=== PATIENT | female | born 1945 | race Caucasian/White ===

== ENCOUNTER 2019-11-21 12:13 | Inpatient (IN) ==
--- NOTE | 2019-11-08 15:13 | PAT Medication Instructions ---
Medication Instructions Date of Service November 08, 2019 Home Medications albuterol sulfate 1 inh INHALATION QID PRN albuterol sulfate 2.5 mg INHALATION TID PRN amlodipine [Norvasc] 10 mg PO QAM ascorbic acid (vitamin C) [Vitamin C] 500 mg PO QAM atorvastatin [Lipitor] 20 mg PO QAM benzonatate [Tessalon Perles] 100 mg PO BID PRN fluticasone furoate-vilanterol [Breo Ellipta] 1 inh INHALATION QPM furosemide [Lasix] 20 mg PO QAM losartan [Cozaar] 100 mg PO QAM metoprolol tartrate [Lopressor] 50 mg PO QAM montelukast [Singulair] 10 mg PO HS Centrum Silver Women] 1 tab PO QAM omega-3 fatty acids [[place] 3] 1,000 mg PO QAM omeprazole [Prilosec] 20 mg PO BID polyethylene glycol 3350 [Miralax] 17 g PO DAILY PRN umeclidinium [Incruse Ellipta] 1 inh INHALATION QPM valacyclovir [Valtrex] 1,000 mg PO 3XWK venlafaxine [Effexor] 75 mg PO QAM Continue as directed valacyclovir [Valtrex] 1,000 mg PO 3XWK STOP taking 2 weeks before surgery (or as soon as possible if surgery is within 2 weeks) omega-3 fatty acids [[place] 3] 1,000 mg PO QAM DO NOT take the morning of surgery ascorbic acid (vitamin C) [Vitamin C] 500 mg PO QAM benzonatate [Tessalon Perles] 100 mg PO BID PRN furosemide [Lasix] 20 mg PO QAM losartan [Cozaar] 100 mg PO QAM Centrum Silver Women] 1 tab PO QAM polyethylene glycol 3350 [Miralax] 17 g PO DAILY PRN Take morning of surgery With a small sip of water, OTHERWISE NOTHING TO EAT OR DRINK AFTER MIDNIGHT: albuterol sulfate 1 inh INHALATION QID PRN (if needed) albuterol sulfate 2.5 mg INHALATION TID PRN (if needed) amlodipine [Norvasc] 10 mg PO QAM atorvastatin [Lipitor] 20 mg PO QAM metoprolol tartrate [Lopressor] 50 mg PO QAM omeprazole [Prilosec] 20 mg PO BID venlafaxine [Effexor] 75 mg PO QAM Take evening before surgery albuterol sulfate 1 inh INHALATION QID PRN (if needed) albuterol sulfate 2.5 mg INHALATION TID PRN (if needed) benzonatate [Tessalon Perles] 100 mg PO BID PRN (if needed) fluticasone furoate-vilanterol [Breo Ellipta] 1 inh INHALATION QPM montelukast [Singulair] 10 mg PO HS omeprazole [Prilosec] 20 mg PO BID polyethylene glycol 3350 [Miralax] 17 g PO DAILY PRN (if needed) umeclidinium [Incruse Ellipta] 1 inh INHALATION QPM Other Notes If you have any questions please call us at [phone] or [phone] or [phone] or [phone]
--- NOTE | 2019-11-09 09:45 | Anesthesiology Consultation ---
Date of Service November 09, 2019 Assessment & Plan (1) Encounter for pre-operative examination: - Per assessment on 11/08: Travel screen- Lives in [facility]. Travel to [facility] for doctor appts. No known COVID-19 positive contacts or current COVID-19 related symptoms. Surgeon arranging preop COVID testing. Awaiting results. - Cardiology telemedicine visit: 06/20/19: Plavix was discontinued at 11/2018 cardiology office visit d/t recurrent nosebleeds. "Cardiac cath [10/20/18] showed minimal CAD and Rt heart cath showed normal cardiac filling pressures and normal PA presures. She was started on plavix due to presence of CAD and allergy to ASA. 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 She has also been troubled by recurrent epistaxis and then stopped plavix.. nosebleeds have resolved and not recurred since. She is feeling much better from a breathing standpoint.. BP/HR have been adequately controlled per flowsheets from recent encounters." F/U 6 months recommended. Chart Review Chart Review: Acceptable Risk for Surgery and Patient seen in Pre Admission Testing Teaching & Discussion Pre-Anesthesia Teaching/Discussion Notes: Instructed NPO after midnight before surgery,except medications with 15 cc of water. Medication instructions provided according to the PAT guidelines. History Surgery Operation Date: 11/21/19 13:25 Proposed Procedures p Right Sacroiliac Joint Fusion - Raffy Tejada DO Height/Weight Height: 4 ft 11.75 in Weight: 55.3 kg Allergies Allergy/AdvReac Type Severity Reaction Status Date / Time aspirin Allergy Severe SOB, chest Verified 11/09/19 09:38 tightness clopidogrel [From Plavix] AdvReac Nosebleeds Verified 11/09/19 09:56 Medications Home Medications Medication Instructions Recorded Confirmed Last Taken albuterol sulfate 1 inh INHALATION QID PRN 11/03/19 11/03/19 Unknown albuterol sulfate 2.5 mg INHALATION TID PRN 11/03/19 11/03/19 Unknown amlodipine [Norvasc] 10 mg PO QAM 11/03/19 11/03/19 Unknown ascorbic acid (vitamin C) [Vitamin 500 mg PO QAM 11/03/19 11/03/19 Unknown C] atorvastatin [Lipitor] 20 mg PO QAM 11/03/19 11/03/19 Unknown benzonatate [Tessalon Perles] 100 mg PO BID PRN 11/03/19 11/03/19 Unknown fluticasone furoate-vilanterol 1 inh INHALATION QPM 11/03/19 11/03/19 Unknown [Breo Ellipta] furosemide [Lasix] 20 mg PO QAM 11/03/19 11/03/19 Unknown losartan [Cozaar] 100 mg PO QAM 11/03/19 11/03/19 Unknown metoprolol tartrate [Lopressor] 50 mg PO QAM 11/03/19 11/03/19 Unknown montelukast [Singulair] 10 mg PO HS 11/03/19 11/03/19 Unknown yicxhoxo-dyg-uxzx-FA-lutein 1 tab PO QAM 11/03/19 11/03/19 Unknown [Centrum Silver Women] omega-3 fatty acids [Page 3] 1,000 mg PO QAM 11/03/19 11/03/19 Unknown omeprazole [Prilosec] 20 mg PO BID 11/03/19 11/03/19 Unknown polyethylene glycol 3350 [Miralax] 17 g PO DAILY PRN 11/03/19 11/03/19 Unknown umeclidinium [Incruse Ellipta] 1 inh INHALATION QPM 11/03/19 11/03/19 Unknown valacyclovir [Valtrex] 1,000 mg PO 3XWK 11/03/19 11/03/19 Unknown venlafaxine [Effexor] 75 mg PO QAM 11/03/19 11/03/19 Unknown Past Medical History Medical History Anxiety Asthma stable CAD (coronary artery disease) non-obstructive, started on plavix d/t ASA sensitivity which was then discon tinued by cardiology d/t recurrent nosebleeds GERD (gastroesophageal reflux disease) controlled Hyperlipidemia Hypertension Insomnia Osteoarthritis Osteoporosis Valvular heart disease Mild to moderate MR/Mild TR per 08/2018 echo Exercise / Class Metabolic Activity III < 4 Walking/Shop/Light housework (one flight of stairs (no chest pain, rare sob)) Past Family History Family History Other No significant family history Past Surgical History Surgical History Fusion of spine lumbar History of cardiac cath 10/2018 (no stents) History of colonoscopy History of esophagogastroduodenoscopy (EGD) History of hysterectomy History of tonsillectomy and adenoidectomy History of tooth extraction Past Anesthesia History No Hx of Anesthesia Complications and No Family Hx of Anesthesia Complications History of PONV No Hx of PONV and No Hx of Motion Sickness Social History Smoking Status: Never smoker Do You Dip or Chew Tobacco: No Hx Alcohol Use: Yes Alcohol type: hard liquor alcohol intake frequency: a few times a week Hx Substance Use: No Review of Systems Patient denies chest pain, shortness of breath, dyspnea on exertion, fever, chills, cough, wheezing, palpitations. Physical Exam Vital Signs VITALS BP 127/71 P 72 TEMP 98.5 SP02 97%RA RESP 18 PHYSICAL Mildly decreased cervical extension. Full TMJ range of motion. TMD 3 finger breaths Mallampati Score 2 Dentition: missing side, upper left side implant Lungs: clear throughout to auscultation Cardiac: regular rate and rhythm, no murmurs noted Spine: normal Carotid arteries: negative bruit Extremities: no edema Testing Laboratory Results 11/09/19 10:03 11/09/19 10:03 PT 10.4 Seconds (9.0-12.0) 11/09/19 10:03 INR 1.0 (0.9-1.1) 11/09/19 10:03 APTT 25.3 Seconds (21.0-31.0) 11/09/19 10:03 Urine Color Yellow 11/09/19 10:03 Urine Appearance Clear (Clear) 11/09/19 10:03 Urine pH 5.0 (4.5-7.5) 11/09/19 10:03 Ur Specific [place] 1.021 (1.000-1.030) 11/09/19 10:03 Urine Protein Negative (Negative) 11/09/19 10:03 Urine Glucose (UA) Negative (Negative) 11/09/19 10:03 Urine Ketones Negative (Negative) 11/09/19 10:03 Urine Nitrite Negative (Negative) 11/09/19 10:03 Ur Leukocyte Esterase Trace (Negative) H 11/09/19 10:03 Urine WBC (Auto) 1-5 /hpf (0-5) 11/09/19 10:03 Urine RBC (Auto) 10-30 /hpf (0-4) H 11/09/19 10:03 U Hyaline Cast (Auto) 1-5 /lpf (0-5) 11/09/19 10:03 U Epithel Cells (Auto) 10-20 /lpf (0-5) H 11/09/19 10:03 Urine Bacteria (Auto) Negative (Negative) 11/09/19 10:03 Blood Type A Positive 11/09/19 10:03 Antibody Screen NEGATIVE 11/09/19 10:03 Electrocardiogram Date: 11/09/19 NSR at 69bpm. unconfirmed report. Chest X-Ray Date: 11/09/19 No acute process within the chest. Moderate hiatus hernia. Scoliosis. Echocardiogram Date: 08/16/18 LVEF 49%. Mild diffuse HK. Mild LVD. Mild to moderate MR. Mild TR. Grade I DD. Moderate enlarged aortic root. Cardiac Catheterization Date: 10/20/18 Coronary angiogram is significant for non obstructive disease in LAD. There is 30% mid LAD stenosis. Continued medical management. Given ASA sensitivity, started patient on clopidogrel and statin + increasing amlodipine for afterload reduction.
[2019-11-09 10:26] LABS: Basophils # (auto) 0.02 K/uL (0-0.2); Basophils % (auto) 0.2 %; Eosinophils # (auto) 0.16 K/uL (0-0.5); Eosinophils % (auto) 1.8 %; Hematocrit (blood only) 39.2 % (37-47); Immature Granulocytes # (auto) 0.04 K/uL (0.00-0.02); Immature Granulocytes % (auto) 0.4 %; Lymphocytes # (auto) 1.74 K/uL (1.2-3.4); Lymphocytes % (auto) 19.3 %; Mean Corpuscular Hemoglobin 34.1 pg (25-34); Mean Corpuscular Hgb Conc 33.2 g/dL (32-36); Mean Corpuscular Volume 102.9 fL (80-100); Mean Platelet Volume 10.3 fL (7.4-10.4); Monocytes # (auto) 0.81 K/uL (0.11-0.59); Neutrophils # (auto) 6.25 K/uL (1.4-6.5); Neutrophils % (auto) 69.3 %; Platelet Count 313 K/uL (130-400); RDW Coefficient of Variation 13.6 % (11.5-14.5); RDW Standard Deviation 51.2 fL (36.4-46.3); Red Blood Count 3.81 M/uL (4.2-5.4); White Blood Count 9.02 K/uL (4.8-10.8)
[2019-11-09 10:29] LABS: Appearance Urine Clear (Clear); Bacteria Urine Automated Negative (Negative); Bilirubin Urine Negative (Negative); Blood Urine Negative (Negative); Color Urine Yellow; Glucose Urine UA Negative (Negative); Ketones Urine Negative (Negative); Leukocyte Esterase Urine Trace (Negative); Nitrite Urine Negative (Negative); Protein Urine Negative (Negative); Specific Gravity Urine 1.021 (1.000-1.030); Urobilinogen Urine Negative (Negative)
--- NOTE | 2019-11-09 10:38 | XRay Report ---
XR chest Pre-admission PA/Lat HISTORY: Preop. COMPARISON: Chest 11/17/2010. FINDINGS: The lungs are clear. The heart is normal in size. Retrocardiac density favors a moderate hi atus hernia. No pleural effusions. No pneumothorax. Old, healed bilateral rib fractures. S-shaped sco liosis and lumbar spinal fusion hardware. IMPRESSION: 1. No acute process within the chest. 2. Moderate hiatus hernia. 3. Scoliosis. ACT 112: Negative or not required by law. Electronically signed by: Marcellus Ruby M.D. 11/09/2019 10:36 AM
[2019-11-09 10:39] LABS: Partial Thromboplastin Ratio 0.9; Partial Thromboplastin Time 25.3 Seconds (21.0-31.0); Prothrombin Time 10.4 Seconds (9.0-12.0)
[2019-11-09 12:17] LABS: Calcium 9.5 mg/dl (8.5-10.1); Creatinine Clr Calc Pharmacy 40.9 ml/min; Est GFR (African American) 68.9; Est GFR (Non-African American) 59.4; Potassium 4.2 mmol/L (3.5-5.1)
--- NOTE | 2019-11-10 12:44 | Electrocardiogram Report ---
Test Reason : Blood Pressure : / mmHG Vent. Rate : 069 BPM Atrial Rate : 069 BPM P-R Int : 188 ms QRS Dur : 076 ms QT Int : 418 ms P-R-T Axes : 058 024 039 degrees QTc Int : 447 ms Normal sinus rhythm Normal ECG When compared with ECG of 18-APR-2010 12:34, No significant change was found Confirmed by Bautista Hanley ([id number]) on 11/10/2019 12:44:17 PM Referred By: Raffy Tejada Confirmed By:Bautista Hanley
[~2019-11-21 12:13] MED LIST: ACETAMINOPHEN 500 MG TAB PO SCH; CEFAZOLIN 1000MG 1,000 MG/7.5 ML SYR IV SCH; CeleBREX 200 MG CAP PO SCH; GABAPENTIN 300 MG CAP PO SCH; LR 15ML/HR IV SCH
[2019-11-21] MEDS ORDERED: LIDOCAINE HCL 2% 2 ML VIAL/AMP(20MG/ML) INFIL ONE (12:19)
[2019-11-21] MEDS ORDERED: ONDANSETRON INJ 2 MG/ML 2 ML VIAL ONE (12:19)
[2019-11-21] MEDS ORDERED: MIDAZOLAM HCL 1 MG/ML 2ML VIAL ONE (12:19)
[2019-11-21] MEDS ORDERED: fentaNYL citrate 100 MCG/2 ML VIAL ONE ×2 (12:19→14:36)
[2019-11-21] MEDS ORDERED: PROPOFOL IV EMULSION 10 MG/ML 20 ML VIAL IV ONE (12:19)
[2019-11-21] MEDS ORDERED: ROCURONIUM BROMIDE 10 MG/ML 5 ML VIAL IV ONE (12:19)
--- OUTSIDE RECORDS SUMMARY | 2019-11-21 12:20 | External Medical Summary | Continuity of Care Document ---
:1945 Author Name Noe Lamar Address Unavailable Unavailable , Care Team Providers Name Role Phone Unavailable Unavailable Unavailable Dedrick Todd M.D. 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 Refills: 0 Claritin 10 MG Oral Capsule; TAKE 1 CAPSULE Daily PRN , M.D. Quantity: 30 Refills: 0 Oscal 500/200 D-3 500-200 MG-UNIT Oral Tablet; TAKE 1 TABLET DAILY DIRECTED. , M.D. Refills: 0 PriLOSEC OTC 20 MG Oral Tablet Delayed Release; Take 1 table t daily , M.D. Refills: 0 Norvasc 10 MG Oral Tablet; TAKE 1 TABLET DAILY DIRECTED. , M.D. Refills: 0 predniSONE 10 MG Oral Tablet; 4 tabs PO qam X 2d, 3 tabs PO qam X 2d, 2 tabs PO qam X 2d, 1 tab PO qam X 2d. Willard Todd Start: 04-May-2010 Quantity: 20 Refills: 0 Xopenex HFA 45 MCG/ACT Inhalation Aeroso l; INHALE 2 PUFFS EVERY 4 HOURS NEEDED Willard Todd Start: 04-May-2010 Quantity: 1 Refills: 11 Lexapro 10 MG Oral Tablet; Take 1 tablet daily Willard Todd Quantity: 30 Refills: 11 Fosamax 70 MG Oral Tablet; TAKE 1 TABLET ONCE WEEKLY. , M.D. Refills: 0 Ativan 0.5 MG Oral Tablet , M.D. Refills: 0 Estraderm 0.05 MG/24HR PTTW; APPLY 1 PATCH TWICE WEEKLY D IRECTED. , M.D. Refills: 0 Temazepam 30 MG Oral Capsule; TAKE 1 CAPSULE AT BEDTIM E NEEDED FOR SLEEP. , M.D. Refills: 0 Advair Diskus 500-50 MCG/DOSE Inhalation Aerosol Powder Breath Activated; INHALE 1 PUFFS Every twelve hours , M.D. Refills: 0 Zantac 150 MG CAPS; TAKE 1 CAPSULE DAILY. , M.D. Refills: 0 Valtrex 1 GM Oral Tablet; TAKE 0.5 TABLET Daily , M.D. Refills: 0 Procedures History of Parathyroid Resection Status: Completed History of Laminectomy Lumbar Status: Co mpleted History of Total Abdominal Hysterectomy Status: Completed Immunizations Immunizations not documented Family History Father Family history of Asthma (V17.5) Status: Active Family history of Leukemia (V16.6) Status: Active Social History - Smoking Status Never smoked tobacco Plan of Treatment Planned Observations Planned Goals not documented Results No Known Results Results not documented
[2019-11-21] MEDS ORDERED: CeleBREX 200 MG CAP ONE (12:33)
--- NOTE | 2019-11-21 13:02 | History & Physical Bridge Note ---
Date of Service November 21, 2019 History & Physical Bridge Note I have examined the patient, reviewed the History & Physical and in the interval since the performance of the History & Physical I have noted the following changes of clinical significance: no changes noted
--- NOTE | 2019-11-21 13:03 | History & Physical Report ---
Date of Service November 21, 2019 Assessment & Plan (1) Sacroiliitis: Admission and Anticipated Discharge Date Admission Date: Right sacroiliac joint fusion History of Present Illness Chief Complaint: Sacroiliitis Primary Care Provider: Jas Montano PA-C This is a 74-year-old female well-known to me the presents with chronic persistent sacroiliitis. After failing extensive course of nonoperative care is here for surgical invention. Allergies Allergy/AdvReac Type Severity Reaction Status Date / Time aspirin Allergy Severe SOB, chest Verified 11/21/19 12:34 tightness clopidogrel [From Plavix] AdvReac Nosebleeds Verified 11/21/19 12:34 Home Medications Home Medications Medication Instructions Recorded Confirmed Type albuterol sulfate 1 inh INHALATION QID PRN 11/03/19 11/21/19 History albuterol sulfate 2.5 mg INHALATION TID PRN 11/03/19 11/21/19 History amlodipine [Norvasc] 10 mg PO QAM 11/03/19 11/21/19 History ascorbic acid (vitamin C) [Vitamin 500 mg PO QAM 11/03/19 11/21/19 History C] atorvastatin [Lipitor] 20 mg PO QAM 11/03/19 11/21/19 History benzonatate [Tessalon Perles] 100 mg PO BID PRN 11/03/19 11/21/19 History fluticasone furoate-vilanterol 1 inh INHALATION QPM 11/03/19 11/21/19 History [Breo Ellipta] furosemide [Lasix] 20 mg PO QAM 11/03/19 11/21/19 History losartan [Cozaar] 100 mg PO QAM 11/03/19 11/21/19 History metoprolol tartrate [Lopressor] 50 mg PO QAM 11/03/19 11/21/19 History montelukast [Singulair] 10 mg PO HS 11/03/19 11/21/19 History uhvltftb-kok-osvs-FA-lutein 1 tab PO QAM 11/03/19 11/21/19 History [Centrum Silver Women] omega-3 fatty acids [[place] 3] 1,000 mg PO QAM 11/03/19 11/21/19 History omeprazole [Prilosec] 20 mg PO BID 11/03/19 11/21/19 History polyethylene glycol 3350 [Miralax] 17 g PO DAILY PRN 11/03/19 11/21/19 History umeclidinium [Incruse Ellipta] 1 inh INHALATION QPM 11/03/19 11/21/19 History valacyclovir [Valtrex] 1,000 mg PO 3XWK 11/03/19 11/21/19 History venlafaxine [Effexor] 75 mg PO QAM 11/03/19 11/21/19 History Past Med/Surg History Medical History Anxiety Asthma stable CAD (coronary artery disease) non-obstructive, started on plavix d/t ASA sensitivity which was then discontinued by cardiology d/t recurrent nosebleeds GERD (gastroesophageal reflux disease) controlled Hyperlipidemia Hypertension Insomnia Osteoarthritis Osteoporosis Valvular heart disease Mild to moderate MR/Mild TR per 08/2018 echo Surgical History Fusion of spine lumbar History of cardiac cath 10/2018 (no stents) History of colonoscopy History of esophagogastroduodenoscopy (EGD) History of hysterectomy History of tonsillectomy and adenoidectomy History of tooth extraction Family History Other No significant family history Social History Smoking Status: Never smoker Second Hand Exposure: Yes (IN THE PAST); Do You Dip or Chew Tobacco: No; Tobacco Cessation Education Requested by Patient: No Hx Alcohol Use: Yes Alcohol type: hard liquor Hx Substance Use: No Preferred Language: German Cafe Helper Required: No Beliefs That Will Affect Care: None Current Living Situation: Spouse Feels Safe at Home: Yes Safety Concerns: Feels Safe At This Time Assistive Devices: Cane and Glasses Assistive Devices Comment: READING GLASSES Physical Exam Physical Exam: Patient is alert and oriented neurologically intact. Heart regular rate and rhythm. Lungs clear to auscultation. Results & Data ([facility]) Vital Signs (Past 12 Hours) Vital Signs Temp Pulse Resp BP Pulse Ox 11/21/19 12:39 37.1 C 73 18 137/84 93
[2019-11-21] MEDS ORDERED: ePHEDrine sulfate 50 MG/ML AMP IV PRN (13:04)
[2019-11-21] MEDS ORDERED: fentaNYL citrate 100 MCG/2 ML VIAL IV PRN (13:04)
[2019-11-21] MEDS ORDERED: ATROPINE SULFATE 0.1 MG/ML 10ML SYR IV PRN (13:04)
[2019-11-21] MEDS ORDERED: MEPERIDINE HCL 25 MG/ML CARP/VIAL IV PRN (13:04)
[2019-11-21] MEDS ORDERED: HYDROmorphone INJ 1 MG/ML SYRINGE IV PRN ×2 (13:04→16:55)
[2019-11-21] MEDS ORDERED: ONDANSETRON INJ 2 MG/ML 2 ML VIAL IV PRN ×2 (13:04→16:55)
[2019-11-21] MEDS ORDERED: LABETALOL HCL IV 5 MG/ML 20ML IV PRN (13:04)
[2019-11-21] MEDS ORDERED: PHENYLEPHRINE 100MCG/ML 5ML SYR IV PRN (13:04)
[2019-11-21] MEDS ORDERED: EPINEPHrine INJ 1 MG/ML AMP ONE (13:24)
[2019-11-21] MEDS ORDERED: BUPIVACAINE 0.5 % 5 MG/1 ML MPF 30ML VIAL ONE (13:24)
[2019-11-21] MEDS ORDERED: BACITRACIN INJ 50,000 UNIT VIAL ONE (13:24)
[2019-11-21] MEDS ORDERED: DEXAMETHASONE SOD INJ 4 MG/ML VIAL ONE (13:57)
[2019-11-21] MEDS ORDERED: PHENYLEPHRINE 100MCG/ML 5ML SYR ONE (14:22)
[2019-11-21] MEDS ORDERED: ePHEDrine sulfate 50 MG/ML SYR ONE (14:22)
[2019-11-21] MEDS ORDERED: GLYCOPYRROLATE 0.2 MG/ML VIAL ONE (14:33)
[2019-11-21] MEDS ORDERED: NEOSTIGMINE METHYLSULFATE 1 MG/ML 10ML VIAL ONE (14:33)
--- NOTE | 2019-11-21 14:35 | Operative Report ---
Post Operative Report Pre & Post Diagnosis Operation Date: 11/21/19 13:25 Pre-Op Diagnosis: Sacroiliac Joint Dysfunction, right side Post-Op Diagnosis: Sacroiliac Joint Dysfunction, right side I identified the patient and participated in the time-out.: Yes Procedure Operation Date: 11/21/19 13:25 Actual Procedures #1 open right SI joint fusion. #2 placement of 20 mm allograft filled with infuse collagen sponge within the right SI joint. #3 placement of 3 percutaneous SI joint screws across the right joint. Surgeon Raffy Tejada, DO Bunch Breaker Keely Mccann Estimated Blood Loss 20 Findings Consistent with Post-Op Diagnosis Specimens None Indications This is a 74-year-old female well-known to me the presents above-mentioned diagnosis after failed extensive course of nonoperative care is here for the above-mentioned procedure. Description of Procedure Patient was met with identified informed consent obtained. Patient was then taken to the operative suite underwent an patient placed in a prone position on the Meir table with a chest padded bolsters.. All bony prominences well- padded eyes inspected to ensure no external pressure placed upon them. The right upper buttock was then prepped and draped in normal sterile fashion. I then created a small incision over the right posterior SI joint. Approximately 3 cm in length. Was able to dissect down to the posterior aspect of the SI joint. A guidewire was then placed within the joint joint finder was then tapped in the joint followed by a a box guide. I then chiseled out the right SI joint. After this complete a 20 mm bony allograft filled with infuse collagen sponge was tapped within the the right SI joint. I then placed a second incision along the right upper buttock in line with the posterior sacral slope. Approximately 3 cm in length. A guidewire was then inserted and an inlet outlet and lateral views placed a guidewire across the proximal SI joint. Slight dilators were then used and I drilled across the guidewire across the joint with a 10 mm drill. A 45 mm RAMESH-coated slotted SI joint screw filled with infuse collagen sponge and local autograft was then placed across the joint. Demonstrated excellent alignment and purchase. An outrigger guide was utilized to place a second distal K wire. In a similar fashion I drilled across the joint and subsequently placed a 40 mm RAMESH-coated slotted screw filled with infuse collagen sponge and local autograft. Again excellent alignment and purchase was noted. Using an outrigger guide a third distal K wire was placed in a similar fashion. Again I dilated and drilled across the joint this time placing a 30 mm RAMESH-coated slotted screw filled with local autograft and infuse collagen sponge. Again excellent alignment and purchase was noted. The incisions were then copiously irrigated closed with subcutaneous Vicryl and Monocryl for final skin closure. Steri-Strip sterile dressings placed. Patient waken taken PACU stable condition. Please note Keely Mccann was present at the entire procedure involved the patient positioning complex portions of the surgery and final skin closure. I attest to the content of the Intraoperative Record and any orders documented therein. Any exceptions are noted below.
--- NOTE | 2019-11-21 14:49 | Fluoroscopy Report ---
FL sacrum CLINICAL HISTORY: RIGHT SI JOINT FUSION COMPARISON STUDY: None FLUOROSCOPY TIME: 113 seconds. NUMBER OF FLUOROSCOPIC IMAGES: 3 FINDINGS: 3 intraoperative fluoroscopic spot images demonstrate 3 SI joint horizontal cannulated bolt s. Also is made of postsurgical changes of a lumbar spinal fusion IMPRESSION: Intraoperative fluoroscopic spot images demonstrating 3 cannulated SI joint bolts ACT 112: Negative or not required by law. Electronically signed by: Jose F Vega M.D. 11/21/2019 2:48 PM
--- NOTE | 2019-11-21 15:37 | Anesthesiology Progress Note ---
Date of Service November 21, 2019 Anesthesia Post Procedure Vital Signs Vital Signs: Temp Pulse Pulse Resp BP Pulse Ox 11/21/19 15:35 76 16 123/67 98 11/21/19 15:25 36.4 C L 82 16 122/68 98 11/21/19 15:15 82 16 124/67 100 11/21/19 15:05 80 16 131/65 100 11/21/19 14:56 36.7 C 84 16 128/54 L 100 11/21/19 12:39 37.1 C 73 18 137/84 93 Transfer of Care Handoff Completed per policy Notes Mental Status: alert / awake / arousable Patient Amnestic to Procedure: Yes Nausea / Vomiting: adequately controlled Pain: adequately controlled Airway Patency, RR, SpO2: stable & adequate BP & HR: stable & adequate Hydration State: stable & adequate Anesthetic Complications: no major complications apparent and Pt Satisfied with anesthetic care
[2019-11-21] MEDS ORDERED: ALBUTEROL 0.5% NEB SOLN 2.5 MG/0.5 ML VIAL INH PRN (16:55)
[2019-11-21] MEDS ORDERED: POLYETHYLENE (MIRALAX) 17 GM PACK PO PRN (16:55)
[2019-11-21] MEDS ORDERED: LORazepam 0.5 MG/1 ML VIAL IV PRN (16:55)
[2019-11-21] MEDS ORDERED: METOCLOPRAMIDE HCL INJ 5 MG/ML 2 ML VIAL IV PRN (16:55)
[2019-11-21] MEDS ORDERED: TRAMADOL HCL 50 MG TABLET PO PRN (16:55)
[2019-11-21] MEDS ORDERED: SOD PHOSPHATE/SOD BIPHOSPHATE ENEMA 132 ML BTL PR PRN (16:55)
[2019-11-21] MEDS ORDERED: PROMETHAZINE HCL 12.5 MG in SODIUM CHLORIDE 0.9% 50 ML IV PRN (16:55)
[2019-11-21] MEDS ORDERED: HYDROmorphone INJ 0.5 MG/0.5 ML SYR IV PRN (16:55)
[2019-11-21] MEDS ORDERED: bisacodyL 10 MG SUPP PR PRN (16:55)
[2019-11-21] MEDS ORDERED: ALUMINUM/MAGNESIUM SUSP 30 ML UDC PO PRN (16:55)
[2019-11-21] MEDS ORDERED: NALOXONE HCL 0.4 MG/1 ML VIAL/CARP IV PRN (16:55)
[2019-11-21] MEDS ORDERED: LORazepam 0.5 MG TAB PO PRN (16:55)
[2019-11-21] MEDS ORDERED: DO NOT ADMINISTER PNEUMOCOCCAL VACCINE PRN (16:55)
[2019-11-21] MEDS ORDERED: ACETAMINOPHEN 1,000 MG/100 ML VIAL IV PRN (16:55)
[2019-11-21] MEDS ORDERED: ALBUTEROL HFA 8 GM INHALER INH PRN (16:55)
[2019-11-21] MEDS ORDERED: ONDANSETRON 4 MG OD TAB PO PRN (16:55)
[2019-11-21] MEDS ORDERED: ACETAMINOPHEN 500 MG TAB PO PRN (16:55)
[2019-11-21] MEDS ORDERED: MAGNESIUM HYDROXIDE SUSP 30 ML UDC PO PRN (16:55)
[2019-11-21] MEDS ORDERED: DO NOT ADMINISTER FLU VACCINE PRN (16:55)
[2019-11-21] MEDS ORDERED: LACTATED RINGER'S 1,000 ML IV SCH (16:55)
[2019-11-21] MEDS ORDERED: FAMOTIDINE 20 MG TAB PO PRN (16:55)
[2019-11-21] MEDS: OXYCODONE HCL IR 5 MG TAB (IMMEDIATE RELEASE) PO PRN (17:25)
[2019-11-21] MEDS ORDERED: DOCUSATE SODIUM/SENNA 50/8.6MG TAB PO SCH (21:00)
[2019-11-21] MEDS ORDERED: FLUTICASONE/VILANTEROL 200/25MCG 14 PUFFS/INHALER INH SCH (21:00)
[2019-11-21] MEDS ORDERED: MONTELUKAST SODIUM 10 MG TABLET PO SCH (21:00)
[2019-11-21] MEDS ORDERED: UMECLIDINIUM BROMIDE 62.5MCG/BLISTER 7 PUFFS/INHALER INH SCH (21:00)
[2019-11-21] MEDS: PANTOprazole 40 MG TAB PO SCH (21:02)
[2019-11-21] MEDS: CEFAZOLIN 1000MG 1,000 MG/7.5 ML SYR IV SCH (21:03)
[2019-11-22] MEDS: OXYCODONE HCL IR 5 MG TAB (IMMEDIATE RELEASE) PO PRN ×2 (00:26→09:51)
[2019-11-22] MEDS: CEFAZOLIN 1000MG 1,000 MG/7.5 ML SYR IV SCH (05:10)
[2019-11-22] MEDS: POLYETHYLENE (MIRALAX) 17 GM PACK PO SCH ×2 (05:10→13:15)
[2019-11-22] MEDS: PANTOprazole 40 MG TAB PO SCH (08:52)
[2019-11-22] MEDS ORDERED: ATORVASTATIN 20 MG TAB PO SCH (09:00)
[2019-11-22] MEDS ORDERED: OMEGA-3 (PURIFIED FISH OIL) 1 GM CAP PO SCH (09:00)
[2019-11-22] MEDS ORDERED: AMLODIPINE BESYLATE 5 MG TAB PO SCH (09:00)
[2019-11-22] MEDS ORDERED: LOSARTAN POTASSIUM 50 MG TAB PO SCH (09:00)
[2019-11-22] MEDS ORDERED: VENLAFAXINE HCL XR 75 MG CAPXR PO SCH (09:00)
[2019-11-22] MEDS ORDERED: FUROSEMIDE 20 MG TAB PO SCH (09:00)
[2019-11-22] MEDS ORDERED: METOPROLOL TARTRATE 50 MG TAB PO SCH (09:00)
[2019-11-22] MEDS ORDERED: ASCORBIC ACID 500 MG TAB PO SCH (09:00)
[2019-11-22] MEDS ORDERED: MULTIVITAMIN TAB PO SCH (09:00)
--- NOTE | 2019-11-22 11:44 | Discharge Summary ---
Date of Service November 22, 2019 Admission HPI Per Admitting Provider This is a 74-year-old female well-known to me the presents with chronic persistent sacroiliitis. After failing extensive course of nonoperative care is here for surgical invention. Principal Diagnosis Right sacroiliitis Discharge Data Allergies Allergy/AdvReac Type Severity Reaction Status Date / Time aspirin Allergy Severe SOB, chest Verified 11/21/19 12:34 tightness clopidogrel [From Plavix] AdvReac Nosebleeds Verified 11/21/19 12:34 Procedures Performed Operation Date: 11/21/19 13:25 Actual Procedures p Right Sacroiliac Joint Fusion - Raffy Tejada DO Ordered Studies 11/21/19 [place] fluoroscopy <1hr Routine [place] sacrum Routine Hospital Course (1) Sacroiliitis: Patient underwent right SI joint fusion tolerated so was taken to orthopedic for possibly. Postop day 1 she tolerated physical therapy well. Pain well controlled. Subsequently discharged home. Discharge orders instructions from the chart for further review. Total Time Total Time Spent Total Time Spent (In Minutes): 20 minutes Discharge Plan Discharge Items Patient Disposition: Home - Self-Care Reason For Visit: SI Joint Dysfunction Discharge Diagnosis: Sacroiliitis Activity: Per Instructions section Lifting: No more than 10 pounds Driving/Machine Use: Resume 3 days after discharge Weightbearing: Right toe touch Non-emergency contact: Primary Care Provider Call non-emergency contact if: you have any medication questions Follow-up/Referrals: Jas Montano PA-C [Primary Care Provider] - Diet: Regular Addtl Attending Provider Instructions: Patient may shower tomorrow. She is to maintain toe-touch weightbearing to the right lower extremity. Follow-up as scheduled in 2 weeks. Pending Studies at Discharge: No Stand-Alone Forms: My [facility] [employer], Smoking Cessation Medications and DC Order Prescriptions: New tramadol 50 mg tablet 50 mg PO Q6H PRN (Reason: pain, moderate) Qty: 20 RF: 0 oxycodone 5 mg tablet 5 mg PO Q6H PRN (Reason: pain, severe) Qty: 20 RF: 0 Continued atorvastatin [Lipitor] 20 mg Tablet 20 mg PO QAM RF: 0 venlafaxine 75 mg Tablet 75 mg PO QAM RF: 0 polyethylene glycol 3350 [Miralax] 17 gram Powder In Packet 17 g PO DAILY PRN (Reason: Constipation) RF: 0 valacyclovir [Valtrex] 1 gram Tablet 1,000 mg PO 3XWK RF: 0 amlodipine [Norvasc] 10 mg Tablet 10 mg PO QAM RF: 0 benzonatate [Tessalon Perles] 100 mg Capsule 100 mg PO BID PRN (Reason: Cough) RF: 0 metoprolol tartrate [Lopressor] 50 mg Tablet 50 mg PO QAM RF: 0 ascorbic acid (vitamin C) [Vitamin C] 500 mg Capsule, Extended Release 500 mg PO QAM RF: 0 omeprazole 20 mg Capsule,Delayed Release(Dr/Ec) 20 mg PO BID RF: 0 montelukast [Singulair] 10 mg Tablet 10 mg PO HS RF: 0 furosemide [Lasix] 20 mg Tablet 20 mg PO QAM RF: 0 albuterol sulfate 90 mcg/actuation Hfa Aerosol Inhaler 1 inh INHALATION QID PRN (Reason: SHORT OF BREATH) RF: 0 losartan [Cozaar] 100 mg Tablet 100 mg PO QAM RF: 0 omega-3 fatty acids Capsule 1,000 mg PO QAM RF: 0 albuterol sulfate 2.5 mg/0.5 mL Solution For Nebulization 2.5 mg INHALATION TID PRN (Reason: SHORT OF BREATH) RF: 0 Centrum Silver Women 8 mg iron-400 mcg-300 mcg Tablet 1 tab PO QAM RF: 0 Incruse Ellipta 62.5 mcg/actuation Blister With Device 1 inh INHALATION QPM RF: 0 Breo Ellipta 200-25 mcg/dose Blister With Device 1 inh INHALATION QPM RF: 0 Discharge Orders: Discharge Order (Routine); Ordered 11/22/19 Ordered By: Raffy Tejada Admission Data Admit Date/Time: 11/21/19 15:01 Attending Provider: Raffy Tejada Admit Provider: Raffy Tejada Primary Care Provider: Jas Montano
== END 2019-11-22 14:18 | disposition home or self-care (01) | DRG 460 ==
LOC: ASU 12:13 → 3E 15:01